=== PATIENT | male | born 1965 | race Caucasian/White ===

== ENCOUNTER 2020-12-21 05:41 | Inpatient (IN) ==
[2020-12-17 14:25] LABS: Basophils % 0.6 % (0.0-0.8); Eosinophils # 0.1 10*3/uL (0.0-0.87); Eosinophils % 1.2 % (0.00-10.9); Hematocrit 40.2 VOL% (42.0-52.0); Immature Granulocytes % 0.6 %; Immature Granulocytes Absolute 0.04 #; Lymphocytes # 1.5 10*3/uL (1.4-4.0); Lymphocytes % 23.3 % (21.2-54.2); Mean Corpuscular HGB Conc 32.3 GM/DL (32-36); Mean Corpuscular Volume 87.8 FL (87-102); Mean Platelet Volume 9.1 FL (9.6-12.0); Monocytes % 7.3 % (1.7-12.7); Platelet Count 195 T/CUMM (130-400); Red Blood Count 4.58 MC/CUMM (3.8-5.5); Red Cell Distribution Width 15.4 % (9.3-17.3); White Blood Count 6.5 T/CUMM (4-12)
[2020-12-17 14:35] LABS: Calcium 8.6 MG/DL (8.5-10.1); Osmolality,Calculated 277.7 MOS/KG (273-304); Potassium 3.9 MMOL/L (3.5-5.1)
[2020-12-21] MEDS ORDERED: LACTATED RINGERS 1,000 ML IV SCH (06:00)
[2020-12-21] MEDS ORDERED: ceFAZolin 2,000 MG in PREMIX 1 EACH IV ONE (06:30)
[2020-12-21] MEDS ORDERED: LIDOCAINE 1%/EPI INJ 20 ML VIAL ONE (06:34)
[2020-12-21] MEDS ORDERED: VANCOMYCIN 500 MG VIAL ONE (06:34)
[2020-12-21] MEDS ORDERED: BUPIVACAINE 0.5% 50 ML VIAL ONE (06:34)
[2020-12-21] MEDS ORDERED: ROCURONIUM 50 MG/5 ML VIAL IV ONE ×2 (06:37→08:08)
[2020-12-21] MEDS ORDERED: SUCCINYLCHOLINE 200 MG/10 ML VIAL ONE (06:37)
[2020-12-21] MEDS ORDERED: propofoL 200 MG/20 ML VIAL IV ONE (06:37)
[2020-12-21] MEDS ORDERED: fentaNYL 100 MCG/2 ML VIAL ONE ×2 (06:37→08:25)
[2020-12-21] MEDS ORDERED: MIDAZOLAM 2 MG/2 ML VIAL ONE (06:37)
[2020-12-21] MEDS ORDERED: LIDOCAINE 2% 5 ML VIAL ONE (06:37)
[2020-12-21] MEDS ORDERED: DIAZEPAM 5 MG TABLET PO ONE (06:40)
[2020-12-21] MEDS ORDERED: FAMOTIDINE 20 MG TABLET PO ONE (06:40)
[2020-12-21] MEDS ORDERED: ACETAMINOPHEN 500 MG TABLET PO ONE (06:40)
[2020-12-21] MEDS ORDERED: GABAPENTIN 400 MG CAPSULE PO ONE (06:40)
[2020-12-21] MEDS ORDERED: ONDANSETRON 4 MG/2 ML VIAL ONE (07:44)
[2020-12-21] MEDS ORDERED: DEXAMETHASONE 4 MG/1 ML VIAL ONE (07:44)
[2020-12-21] MEDS ORDERED: PHENYLEPHRINE 1 MG/10 ML SYRINGE IV ONE (07:45)
[2020-12-21] MEDS ORDERED: PHENYLEPHRINE 10 MG/1 ML VIAL IV ONE (07:45)
[2020-12-21] MEDS ORDERED: SEVOFLURANE 1 UNIT/15 MINUTE INH ONE ×9 (07:45→09:43)
[2020-12-21] MEDS ORDERED: ePHEDrine 50 MG/ML VIAL ONE (07:49)
[2020-12-21] MEDS ORDERED: ALBUMIN 5% 12.5 GM/250 ML VIAL IV ONE (07:56)
[2020-12-21] MEDS ORDERED: LACTATED RINGERS 1,000 ML IV ONE (08:27)
[2020-12-21] MEDS ORDERED: SODIUM CHLORIDE 0.9% 250 ML IV ONE (08:27)
[2020-12-21] MEDS ORDERED: SUGAMMADEX 200 MG/2 ML VIAL IV ONE (08:43)
[2020-12-21] MEDS ORDERED: KETOROLAC 30 MG/1 ML VIAL ONE (08:44)
[2020-12-21 09:53] LABS: Bilirubin,Urine Negative (Negative); Blood, Urine Small mg/dL (Negative); Glucose,Urine (UA) Negative (Negative); Ketones,Urine Negative (Negative); Mucus,Urine Occasional /LPF (Occasional); Nitrite,Urine Negative (Negative); Protein,Urine Negative; RBC,Urine 2 /HPF (0-4); Sperm,Urine Occasional /HPF (Negative); Urine Appearance CLEAR (Clear); Urine Color Yellow (Yellow); Urine Specific Gravity 1.024 (1.001-1.035); Urine Urobilinogen < 2.0 EU/DL (0.2-1.0); WBC,Urine 1 /HPF (0-6)
[2020-12-21] MEDS ORDERED: ONDANSETRON 4 MG/2 ML VIAL IV PRN ×2 (10:04→10:51)
[2020-12-21] MEDS: HYDROmorphone 2 MG/1 ML VIAL IV PRN ×2 (10:06→10:15)
[2020-12-21] MEDS ORDERED: HYDROmorphone 2 MG/1 ML VIAL IV PRN (10:51)
[2020-12-21] MEDS ORDERED: GABAPENTIN 400 MG CAPSULE PO PRN (10:51)
[2020-12-21] MEDS ORDERED: PROMETHAZINE 25 MG/1 ML VIAL IM PRN (10:51)
[2020-12-21] MEDS: LACTATED RINGERS 1,000 ML IV SCH ×2 (11:59→20:47)
[2020-12-21] MEDS: KETOROLAC 15 MG/1 ML VIAL IV SCH ×2 (11:59→17:51)
[2020-12-21 12:23] LABS: Basophils % 0.3 % (0.0-0.8); Hematocrit 39.6 VOL% (42.0-52.0); Hemoglobin 12.7 GM/DL (14.0-18.0); Immature Granulocytes % 0.3 %; Immature Granulocytes Absolute 0.02 #; Lymphocytes # 0.7 10*3/uL (1.4-4.0); Lymphocytes % 9.4 % (21.2-54.2); Mean Corpuscular HGB Conc 32.1 GM/DL (32-36); Mean Corpuscular Volume 88.8 FL (87-102); Mean Platelet Volume 8.9 FL (9.6-12.0); Platelet Count 189 T/CUMM (130-400); Red Blood Count 4.46 MC/CUMM (3.8-5.5); Red Cell Distribution Width 15.4 % (9.3-17.3); White Blood Count 7.1 T/CUMM (4-12)
[2020-12-21 12:37] LABS: Calcium 8.5 MG/DL (8.5-10.1); Osmolality,Calculated 279.4 MOS/KG (273-304); Potassium 4.2 MMOL/L (3.5-5.1)
[2020-12-21] MEDS: allopurinoL 300 MG TABLET PO SCH (20:46)
[2020-12-21] MEDS: FLUTICASONE 50 MCG NASAL SPRAY 16 GM BOTTLE BOTH NARES SCH (20:46)
[2020-12-21] MEDS ORDERED: ROSUVASTATIN 10 MG TABLET PO SCH (21:00)
[2020-12-22] MEDS: LACTATED RINGERS 1,000 ML IV SCH (04:40)
[2020-12-22] MEDS ORDERED: ENOXAPARIN 40 MG/0.4 ML SYRINGE SUBCUT SCH (05:00)
[2020-12-22 05:38] LABS: Basophils % 0.1 % (0.0-0.8); Hematocrit 34.8 VOL% (42.0-52.0); Hemoglobin 11.4 GM/DL (14.0-18.0); Immature Granulocytes % 0.6 %; Immature Granulocytes Absolute 0.05 #; Lymphocytes # 1.2 10*3/uL (1.4-4.0); Lymphocytes % 13.2 % (21.2-54.2); Mean Corpuscular HGB Conc 32.8 GM/DL (32-36); Mean Corpuscular Volume 88.3 FL (87-102); Mean Platelet Volume 8.8 FL (9.6-12.0); Monocytes % 7.2 % (1.7-12.7); Neutrophils % 78.9 % (38.7-73.9); Platelet Count 165 T/CUMM (130-400); Red Blood Count 3.94 MC/CUMM (3.8-5.5); Red Cell Distribution Width 15.3 % (9.3-17.3); White Blood Count 8.9 T/CUMM (4-12)
[2020-12-22] MEDS: KETOROLAC 15 MG/1 ML VIAL IV SCH ×3 (05:53→12:13)
[2020-12-22 06:03] LABS: Calcium 8.2 MG/DL (8.5-10.1); Osmolality,Calculated 277.5 MOS/KG (273-304); Potassium 4.1 MMOL/L (3.5-5.1)
[2020-12-22] MEDS ORDERED: LEVOTHYROXINE 50 MCG TABLET PO SCH (06:30)
[2020-12-22] MEDS: FLUTICASONE 50 MCG NASAL SPRAY 16 GM BOTTLE BOTH NARES SCH (08:49)
[2020-12-22] MEDS: allopurinoL 300 MG TABLET PO SCH (08:49)
[2020-12-22] MEDS ORDERED: TAMSULOSIN 0.4 MG CAPSULE PO SCH (09:00)
[2020-12-22] MEDS ORDERED: ASPIRIN 325 MG TABLET PO SCH (09:00)
[2020-12-22] MEDS ORDERED: TUBERCULIN SKIN TEST 0.1 ML SYRINGE INTRADERM ONE (09:23)
[2020-12-22 11:18] VITALS: BP 127/71
== END 2020-12-22 13:06 | disposition home or self-care (01) | DRG 355 ==
LOC: N.OR 05:41 → N.SDSINP 05:42 → N.3E 10:48
PROVIDERS: ADMIT Surgery; ATTEND Surgery